=== PATIENT | female | born 1985 | race Caucasian/White ===

== ENCOUNTER 2017-08-20 11:01 | Emergency (ER) | payer SELFPAY ==
[2017-08-20 11:07] VITALS: BP 131/75
--- NOTE | 2017-08-20 11:36 | ER Document Report ---
ED ENT - General Chief Complaint: Drainage from Ear Stated Complaint: BILATERAL EAR PAIN Time Seen by Provider: 08/20/17 11:31 Mode of Arrival: Ambulatory Information source: Patient TRAVEL OUTSIDE OF THE [place] IN LAST 30 DAYS: No - HPI Patient complains to provider of: Ear problem - pt. with h/o ear infections with c/o bilateral earache and drainage - Related Data Allergies/Adverse Reactions: No Known Allergies Allergy (Verified 08/20/17 11:02) Past Medical History - General Information source: Patient - Social History Smoking Status: Current Every Day Smoker Cigarette use (# per day): Yes Chew tobacco use (# tins/day): No Frequency of alcohol use: None Drug Abuse: None Family History: Reviewed & Not Pertinent Patient has suicidal ideation: No Patient has homicidal ideation: No Neurological Medical History: Denies: Hx Seizures Renal/ Medical History: Denies: Hx Peritoneal Dialysis Skin Medical History: Reports Hx MRSA Past Surgical History: Reports: Hx Appendectomy. Denies: Hx Abdominal Surgery, Hx Hysterectomy - Immunizations Hx Diphtheria, Pertussis, Tetanus Vaccination: Yes Review of Systems - Review of Systems Constitutional: No symptoms reported EENT: See HPI, Ear pain, Ear discharge Cardiovascular: No symptoms reported Respiratory: No symptoms reported -: Yes All other systems reviewed and negative Physical Exam - Vital signs Vitals: Temp Pulse Resp BP Pulse Ox 99.0 F 74 20 131/75 H 100 08/20/17 11:06 08/20/17 11:06 08/20/17 11:06 08/20/17 11:06 08/20/17 11:06 - General General appearance: Appears well In distress: None - HEENT Head: Normocephalic Ears: Pinna tenderness, Tragus tenderness External canal: Erythema Tympanic membrane: Injected, Loss of landmarks Sinus: Normal Mucous membranes: Normal Pharynx: Normal Neck: Normal - Respiratory Respiratory status: No respiratory distress Breath sounds: Normal - Cardiovascular Rhythm: Regular Heart sounds: Normal auscultation Course - Vital Signs Vital signs: Temp Pulse Resp BP Pulse Ox 99.0 F 74 20 131/75 H 100 08/20/17 11:06 08/20/17 11:06 08/20/17 11:06 08/20/17 11:06 08/20/17 11:06 Discharge - Discharge Clinical Impression: Otitis externa Qualifiers: Otitis externa type: unspecified type Chronicity: acute Laterality: bilateral Qualified Code(s): H60.503 - Unspecified acute noninfective otitis externa, bilateral Otitis media Qualifiers: Otitis media type: unspecified Chronicity: acute Qualified Code(s): H66.90 - Otitis media, unspecified, unspecified ear Condition: Stable Disposition: HOME, SELF-CARE Instructions: Use of Ear Drops ([facility]), Otitis Externa ([facility]) Additional Instructions: rest, take meds as prescribed Prescriptions: Neomy Sulf/Polymyx B Sulf/Hc [Cortisporin Otic Susp] 1 drop BTH_EAR Q6 #1 bottle Sulfamethoxazole/Trimethoprim [Bactrim Ds Tablet] 1 each PO BID #14 tablet Referrals: MIEK FAUSTIN MD [ACTIVE STAFF] - Follow up as needed
== END 2017-08-20 11:39 | disposition home or self-care (01) ==
LOC: ER 11:01
DX: H60.503 Unspecified acute noninfective otitis externa, bilateral (principal); F17.210 Nicotine dependence, cigarettes, uncomplicated; Z86.14 Personal history of Methicillin resistant Staphylococcus aureus infection
CPT/HCPCS: 99282